=== PATIENT | female | born 1950 | race Two or more races ===

== ENCOUNTER 2018-06-19 08:58 | Observation (INO) | payer OTHER, MEDICARE ==
[~2018-06-19] VITALS: Ht 170.2 cm; Wt 74.4 kg
[~2018-06-19 08:58] MED LIST: ASPI-621 PO; ATOR10TA PO; CARV3.1212 PO; CLOP75TA52 PO; ESOM20CA PO; ISOS30TA8 PO; LISI-170 PO; LISI5TAB7 PO
[2018-06-19] MEDS ORDERED: SODIUM CHLORIDE 0.9% 1,000ML IVBOLUS ONE (09:30)
[2018-06-19] MEDS ORDERED: ASPIRIN 81 MG TABLET CHEW PO ONE (09:30)
[2018-06-19 09:41] LABS: BASOPHILS # (AUTO) 0.04 x10^3/uL (0-0.1); BASOPHILS % (AUTO) 1 % (0-1); EOSINOPHILS % (AUTO) 2 % (1-7); LYMPHOCYTES # (AUTO) 2.21 x10^3/uL (1-3.4); LYMPHOCYTES % (AUTO) 40 % (22-44); MD NO; MEAN CORPUSCULAR HEMOGLOBIN 28.5 pg (27.0-34.8); MEAN CORPUSCULAR HGB CONC 33.5 g/dL (32.4-35.8); MEAN PLATELET VOLUME 9.4 fL (7.4-10.4); MONOCYTES # (AUTO) 0.49 x10^3/uL (0.2-0.8); MONOCYTES % (AUTO) 9 % (2-9); NEUTROPHILS # (AUTO) 2.72 x10^3/uL (1.8-6.8); NEUTROPHILS % (AUTO) 49 % (42-75); PLATELET COUNT 178 x10^3/uL (130-400); RED BLOOD COUNT 4.89 x10^6/uL (3.82-5.3); RED CELL DISTRIBUTION WIDTH 13.8 % (9.6-15.2)
[2018-06-19] MEDS ORDERED: ASPIRIN 81 MG TABLET CHEW ONE (09:42)
[2018-06-19 09:53] LABS: ALANINE AMINOTRANSFERASE 31 U/L (12-78); ALBUMIN 3.6 g/dL (3.4-5.0); ANION GAP 9 mmol/L (5-15); CALCIUM 8.5 mg/dL (8.5-10.1); CHLORIDE 106 mmol/L (98-107); CREATININE 0.95 mg/dL (0.55-1.02)
[2018-06-19 09:57] LABS: ALKALINE PHOSPHATASE 78 U/L (45-117); BILIRUBIN,TOTAL 0.3 mg/dL (0.2-1.0); TOTAL PROTEIN 7.4 g/dL (6.4-8.2); TROPONIN I < 0.015 ng/mL (0.000-0.045)
[2018-06-19] MEDS ORDERED: ATOR40TA78 PO (11:06)
[2018-06-19] MEDS ORDERED: TEMAZEPAM 15 MG CAPSULE PO PRN (15:30)
[2018-06-19] MEDS ORDERED: ACETAMINOPHEN 325 MG TABLET PO PRN (15:30)
[2018-06-19] MEDS ORDERED: ONDANSETRON 2MG/ML, 2ML IVPush PRN (15:30)
[2018-06-19] MEDS ORDERED: morphine SULFATE 10 MG/ML, 1ML IVPush PRN (15:30)
[2018-06-19] MEDS ORDERED: HYDROcodone/APAP 5/325 TABLET PO PRN (15:30)
[2018-06-19] MEDS ORDERED: ENOXAPARIN 40 MG/0.4 ML SQ SCH (15:30)
[2018-06-19] MEDS ORDERED: hydrALAzine 20 MG/ML, 1ML IVPush PRN (15:30)
[2018-06-19] MEDS: METOPROLOL TARTRATE 25 MG TABLET PO SCH (16:22)
[2018-06-19] MEDS ORDERED: MECLIZINE CHEWABLE 25 MG TAB PO PRN (16:30)
[2018-06-19 18:44] VITALS: BP 144/73
[2018-06-19 20:27] LABS: TROPONIN I < 0.015 ng/mL (0.000-0.045)
[2018-06-19] MEDS ORDERED: ATORVASTATIN 40 MG TABLET PO SCH (21:00)
[2018-06-20 00:31] VITALS: BP 119/68
[2018-06-20 06:00] LABS: TROPONIN I < 0.015 ng/mL (0.000-0.045)
[2018-06-20] MEDS ORDERED: ASPIRIN 81 MG TABLET EC PO SCH (06:00)
[2018-06-20] MEDS: METOPROLOL TARTRATE 25 MG TABLET PO SCH (06:15)
[2018-06-20 06:55] VITALS: BP 110/71
[2018-06-20] MEDS ORDERED: REGADENOSON 0.4 MG/5 ML SYRINGE ONE (08:00)
[2018-06-20] MEDS ORDERED: LISINOPRIL 5 MG TABLET PO SCH (09:00)
[2018-06-20] MEDS ORDERED: LISINOPRIL 10 MG TABLET PO SCH (09:00)
[2018-06-20] MEDS ORDERED: METO25TA35 PO (15:08)
[2018-06-20] MEDS ORDERED: ASPI-621 PO (15:08)
[2018-06-20] MEDS ORDERED: LISI-167 PO (15:08)
[2018-06-20] MEDS ORDERED: MECL-85 PO (15:08)
== END 2018-06-20 16:52 | disposition home or self-care (01) ==
LOC: ED 10:53 → EDIP 10:54 → INTOOBSV 10:54 → ED 11:14 → 5SO 13:03
PROVIDERS: ADMIT Hospitalist; ATTEND Internal Medicine
DX: R07.9 Chest pain, unspecified (principal); I10 Essential (primary) hypertension; R42 Dizziness and giddiness; I42.9 Cardiomyopathy, unspecified; E78.5 Hyperlipidemia, unspecified; F32.9 Major depressive disorder, single episode, unspecified; I25.10 Atherosclerotic heart disease of native coronary artery without angina pectoris; I25.2 Old myocardial infarction; K21.9 Gastro-esophageal reflux disease without esophagitis; Z90.710 Acquired absence of both cervix and uterus
CPT/HCPCS: 36415; 71045; 78452; 80053; 83880; 84484; 85025; 85379; 93005; 93017; 93306; 93880; 96372; 97162; 99285; A9502; C9898; G0378; G8978; G8979; G8980; J1650; J2785; J7030